=== PATIENT | male | born 1940 | race Caucasian/White ===

== ENCOUNTER 2019-12-18 06:59 | Day surgery (SDC) | payer OTHER, MEDICARE, SELFPAY ==
[~2019-12-18] VITALS: Ht 175.3 cm; Wt 86.2 kg
[2019-12-18] MEDS ORDERED: fentaNYL CITRATE/PF 100 MCG/2 ML AMP IVP ONE (07:00)
[2019-12-18] MEDS ORDERED: MIDAZOLAM HCL 2 MG/2 ML VIAL (VERSED) IVP ONE (07:00)
[2019-12-18] MEDS ORDERED: SIMETHICONE 40 MG/0.6 ML ML PO ONE (07:00)
[2019-12-18] MEDS ORDERED: SIMETHICONE 40 MG/0.6 ML ML ONE (07:29)
[2019-12-18] MEDS ORDERED: fentaNYL CITRATE/PF 100 MCG/2 ML AMP ONE (07:30)
[2019-12-18] MEDS ORDERED: MIDAZOLAM HCL 5 MG/5 ML VIAL ONE (07:30)
[2019-12-18 09:00] VITALS: BP_SYST 129
== END 2019-12-18 22:37 | disposition home or self-care (01) ==
LOC: SDS 06:59 → SMU 07:00 → SDS 22:37
PROVIDERS: ATTEND Internal Medicine
DX: K74.60 Unspecified cirrhosis of liver (principal); I10 Essential (primary) hypertension; K21.9 Gastro-esophageal reflux disease without esophagitis; J44.9 Chronic obstructive pulmonary disease, unspecified; E78.5 Hyperlipidemia, unspecified; D64.9 Anemia, unspecified; Z86.010 Personal history of colon polyps; Z20.828 Contact with and (suspected) exposure to other viral communicable diseases
CPT/HCPCS: 36415; 43239; 87081; 88305; 88312; 99152; G0378; J2250; J3010; J3465; J7030; U0003